=== PATIENT | female | born 1930 | race Caucasian/White ===

== ENCOUNTER 2017-02-06 17:36 | Inpatient (IN) | payer OTHER, MEDICAID ==
--- NOTE | 2017-02-06 18:36 | EDPHY ---
H & P Stated Complaint: not eating/drinking/weak and sleepy/hx of low sodium and potassium Time Seen by Provider: 02/06/17 18:40 HPI/ROS: CHIEF COMPLAINT: Appetite loss HISTORY OF PRESENT ILLNESS: This patient is an 86 year old female with history of Parkinson's disease and dementia who presents to the Emergency Department with son who reports that she has been refusing to eat or drink over the past 24 hours. She has refused her medications during this time. Per son, she has not had a fever, chills, cough, or apparent pain. She does speak with her son; when he has asked, she has denied abdominal pain, nausea, or additional complaints. She has a history of intermittent urinary incontinence with most recent exacerbation three days prior to arrival, but she did urinate today. Medical history also includes hypotension, thyroid dysfunction, and recurrent UTIs. History obtained via son with the help of a Lao russian language instructor. REVIEW OF SYSTEMS: ROS is limited secondary to the patient's history of dementia and Parkinson's disease. Per son, she has denied any additional complaints. Source: Family, Street Openings Inspector Exam Limitations: Language barrier - Personal History Current Tetanus/Diphtheria Vaccine: Yes Tetanus Vaccine Date: 2008 - Medical/Surgical History PMH: 1. Parkinson's disease 2. Dementia 3. Recurrent UTIs 4. Hypotension 5. Thyroid dysfunction, unspecified Hx Asthma: No Hx Chronic Respiratory Disease: No Hx Diabetes: No Hx Cardiac Disease: Yes Hx Renal Disease: No Hx Cirrhosis: No Hx Alcoholism: No Hx HIV/AIDS: No Hx Splenectomy or Spleen Trauma: No Other PMH: htn,dementia, hypotension parkinsons - Social History Smoking Status: Never smoked Additional Social History: Son at bedside. She is originally from [place]. She lives with family. - Physical Exam Exam: General Appearance: Drowsy. Vital signs reviewed. Hypotensive at 84/58. Cachectic. Eyes: Pupils equal and round, no conjunctival injection, no discharge. Anicteric. ENT, Mouth: Mucous membranes are dry, no oropharyngeal erythema or edema. Neck: No lymphadenopathy, supple. Respiratory: Lungs are clear to auscultation; no wheezes, rales, or rhonchi. Cardiovascular: Regular rate and rhythm; no murmur, rub, or gallop. Gastrointestinal: Abdomen is thin, soft and nontender, no masses or organomegaly, bowel sounds normal. Skin: Warm and dry, no rashes on exposed skin, normal color. Back: Nontender to palpation over the thoracolumbar spine. No CVAT. Extremities: No lower extremity edema, no calf tenderness or swelling. Neurological: Somnolent. Intermittently responsive to commands. No verbalization. Limbs are stiff. Psychiatric: Normal affect. Constitutional: Initial Vital Signs Temperature (C) 36.9 C 02/06/17 17:50 Heart Rate 74 02/06/17 17:50 Respiratory Rate 18 02/06/17 17:50 Blood Pressure 84/58 L 02/06/17 17:50 O2 Sat (%) 96 02/06/17 17:50 O2 Delivery Mode Room Air Allergies/Adverse Reactions: No Known Allergies Allergy (Verified 02/06/17 17:46) Home Medications: Medication Instructions Recorded Levothyroxine Sodium [Levothroid] 50 mcg PO DAILY 06/11/11 Lisinopril [PRINIVIL] 20 mg PO DAILY 10/24/11 Scopolamine Hydrobromide 1.5 mg TD Q72H 10/24/11 [Transderm-Scop] Bisacodyl [Bisacodyl (*)] 5 mg PO PRN PRN 02/06/17 Carbidopa/Levodopa/Entacapone 1 each PO TID 02/06/17 [Stalevo 150 Tablet] Memantine HCl [Namenda Xr] 14 mg PO DAILY 02/06/17 Pramipexole Di-HCl [Mirapex ER] 0.75 mg PO DAILY 02/06/17 Travoprost [Travatan Z] 1 drop EACHEYE DAILY 02/06/17 Cephalexin [Keflex (*)] 500 mg PO Q6H #28 cap 02/09/17 Medical Decision Making ED Course/Re-evaluation: 86-year-old female with Parkinson's disease and dementia arrives with her son who reports that she has been refusing food and water for the last 24 hours. She has a history of recurrent UTIs. Son also reports that she has a history of hypokalemia and hyponatremia previously causing her to be less interactive than normal. On exam, she is somnolent, has some drooling, but intermittently responsive to commands. Son states that this is at baseline, though she does occasionally speak with him. Will proceed with labs and UA. The patient was seen by [facility] last week where she is closely followed ; they did not draw labs at that time. UA obtained and is positive for UTI. 1gm IV Ceftriaxone administered. Labs obtained. The patient is hyponatremic at 129. She has baseline anemia. 1954: I discussed lab and UA results with the patient's son as well as my recommendation for admission for further treatment of UTI and hyponatremia. He expresses agreement to this. It is my impression that she is likely dehydrated and malnourished. She will need gentle IV hydration. I am not sure what the and goal is, this will need to be sorted out. 2044: Consultation with Dr. Flakita Otoole, hospitalist, who accepts admission. Differential Diagnosis: Altered mental status including but not limited to hypoglycemia, infectious process, electrolyte abnormality, head injury and intoxicants. - Data Points Laboratory Results: Laboratory Results 02/06/17 19:15 02/06/17 19:15 Medications Given: Discontinued Medications Enoxaparin Sodium (Lovenox) 30 mg SC DAILY [facility] Stop: 08/06/17 08:59 Last Admin: 02/09/17 09:52 Dose: 30 mg Ceftriaxone Sodium/Dextrose (Rocephin 1 Gm (Premix)) 50 mls @ 100 mls/hr IV EDNOW ONE PRN Reason: Protocol Stop: 02/06/17 20:23 Last Admin: 02/06/17 20:31 Dose: 50 mls Sodium Chloride (Ns) 1,000 mls @ 75 mls/hr IV CONT [facility] Stop: 08/05/17 21:59 Last Admin: 02/08/17 18:00 Dose: 1,000 mls Ceftriaxone Sodium/Dextrose (Rocephin 1 Gm (Premix)) 50 mls @ 100 mls/hr IV DAILY [facility]AVAN PRN Reason: Protocol Stop: 03/09/17 08:59 Last Admin: 02/09/17 09:51 Dose: 50 mls Miscellaneous Medication (Memantine Hcl [Namenda Xr]) 0 mg PO DAILY [facility] Stop: 08/06/17 08:59 Last Admin: 02/09/17 09:56 Dose: 7 mg Miscellaneous Medication (Pramipexole Di-Hcl [Mirapex Er]) 0 mg PO DAILY [facility] Stop: 08/06/17 08:59 Last Admin: 02/09/17 09:57 Dose: 0.75 mg Miscellaneous Medication (Carbidopa/Levodopa/Entacapone [Stalevo 150 Tablet]) 0 each PO TID [facility] Stop: 08/05/17 21:59 Last Admin: 02/09/17 09:55 Dose: 150 mg Travoprost (Travatan Z 0.004%) 1 drops EACHEYE DAILY [facility] Stop: 08/06/17 08:59 Last Admin: 02/09/17 09:55 Dose: 1 drop Departure - Departure Disposition: [facility] Inpatient Acute Clinical Impression: Hyponatremia, Failure to thrive in adult UTI (urinary tract infection) Qualifiers: Urinary tract infection type: acute cystitis Hematuria presence: without hematuria Qualified Code(s): N30.00 - Acute cystitis without hematuria Condition: Fair Report Scribed by: Arely James Physician Review and Approval Statement: 02/06/17 18:36 Portions of this note were transcribed by the medical office clerk. I, Dr. Shilpa Lamar, personally performed the history, physical exam, and medical decision- making; and confirmed the accuracy of the information in the transcribed note.
[2017-02-06 19:30] LABS: % IMMATURE GRANULYOCYTES 0.5 % (0.0-1.1); ABSOLUTE IMMATURE GRANULOCYTES 0.02 10^3/uL (0.00-0.10); ADD DIFF? NO; ADD MORPH? NO; ADD SCAN? NO; ATYPICAL LYMPHOCYTE FLAG 0 (0-99); FRAGMENT RBC FLAG 20 (0-99); HEMATOCRIT 27.2 % (38.0-47.0); LEFT SHIFT FLG 0 (0-99); LIPEMIA HEMOLYSIS FLAG 80 (0-99); MEAN CELL HEMOGLOBIN 27.1 pg (27.9-34.1); MEAN CELL HEMOGLOBIN CONCENTR. 33.1 g/dL (32.4-36.7); MEAN CELL VOLUME 81.9 fL (81.5-99.8); MEAN PLATELET VOLUME 10.4 fL (8.7-11.7); PLATELET CLUMPS FLAG 0 (0-99); PLATELET COUNT 224 10^3/uL (150-400); RED BLOOD CELL COUNT 3.32 10^6/uL (4.18-5.33); RED CELL DISTRIBUTION WIDTH 17.5 % (11.5-15.2)
[2017-02-06 19:39] LABS: ANION GAP 7 mEq/L (8-16); CALCIUM 10.6 mg/dL (8.5-10.4); CARBON DIOXIDE 22 mEq/l (22-31); CHLORIDE 100 mEq/L (97-110); CREATININE 0.9 mg/dL (0.6-1.0); GLOMERULAR FILTRATION RATE 60; GLUCOSE 82 mg/dL (70-100); POTASSIUM 4.8 mEq/L (3.5-5.2); SODIUM 129 mEq/L (134-144)
[2017-02-06 19:40] LABS: COLOR AMBER; LEUKOCYTE ESTERASE,URINE TRACE (NEGATIVE); NITRITE,URINE POSITIVE (NEGATIVE)
[2017-02-06 19:45] LABS: BACTERIA 4+ /hpf (NONE SEEN)
[2017-02-06] MEDS ORDERED: ONDANSETRON 4 MG/2 ML VIAL IVP PRN (21:49)
[2017-02-06] MEDS ORDERED: ACETAMINOPHEN 325 MG TAB PO PRN (21:49)
[2017-02-06] MEDS ORDERED: ONDANSETRON DISINTEGRATING 4 MG TAB PO PRN (21:49)
[2017-02-06] MEDS ORDERED: BISACODYL 5 MG EC TAB PO PRN (21:50)
[2017-02-06] MEDS ORDERED: LEVODOPA PO SCH (22:00)
[2017-02-06] MEDS ORDERED: ENTACAPONE PO SCH (22:00)
[2017-02-06] MEDS ORDERED: CARBIDOPA PO SCH (22:00)
[2017-02-06] MEDS: NS 1,000 ML IV SCH (22:20)
--- NOTE | 2017-02-06 22:41 | GHP ---
[f rep st] HISTORY AND PHYSICAL DATE OF ADMISSION: 02/06/2017 CHIEF COMPLAINT: Weakness, decreased p.o. intake. HISTORY OF PRESENT ILLNESS: An 86-year-old female, with a history of fairly advanced Parkinson's di sease and dementia, who has been refusing to eat for the last 24 hours. She is also not taking her medication. She has had previous urinary tract infections, which present like this. There are no f shirin or chills. No abdominal pain. No diarrhea. REVIEW OF SYSTEMS: A 10-point review of systems obtained, and other than stated, is negative. PAST MEDICAL HISTORY: 1. Advanced Parkinson's. 2. Dementia. 3. Previous urinary tract infections. 4. Hypertension. 5. Hypothyroidism. 6. Hyperlipidemia. SOCIAL HISTORY: Lives with her family. No smoking. FAMILY HISTORY: Both parents are . PHYSICAL EXAM: VITAL SIGNS: She is afebrile. Blood pressure is 165/75, heart rate 66, oxygen satu ration 98% on room air. GENERAL: The patient is frail, elderly, very thin woman in no apparent dis tress. HEENT: Nonicteric sclerae. Dry mucous membranes. NECK: Supple. No thyromegaly. LUNGS: Good effort. There is significant barrel chesting, in that the chest actually protrudes quite dram atically. CARDIOVASCULAR: Regular rate and rhythm. No murmurs, gallops. ABDOMEN: Positive bowel sounds. Soft, nontender, nondistended. No hepatosplenomegaly. EXTREMITIES: No clubbing, cyanosi s, or edema. SKIN: Without rash. Warm, intact. NEUROLOGIC: Seems quite stiff, but somnolent. LABS: White count is 3, hemoglobin 9, platelets are 224, sodium 129. BUN is 34, creatinine 0.9, ca lcium 10.6. UA 4+ bacteria, positive nitrites, trace leukocyte esterase. ASSESSMENT: This is an 86-year-old female with advanced Parkinson's presenting with decreased oral intake and failure to thrive. PLAN: 1. Urinary tract infection. We will treat with IV ceftriaxone. 2. Hyponatremia, probably secondary to decreased p.o. intake. We will gently give IV fluids. 3. Parkinson's. We will continue her medications. 4. Hypertension. Continue medications. 5. The patient is a DNR. 6. Social: Could consider Palliative Care consultation. /[id number]/MODL
[2017-02-06] MEDS: CARBIDOPA PO SCH (23:02)
[2017-02-06] MEDS: ENTACAPONE PO SCH (23:02)
[2017-02-06] MEDS: LEVODOPA PO SCH (23:02)
[2017-02-07 05:11] LABS: % IMMATURE GRANULYOCYTES 0.3 % (0.0-1.1); ABSOLUTE IMMATURE GRANULOCYTES 0.01 10^3/uL (0.00-0.10); ADD DIFF? NO; ADD MORPH? NO; ADD SCAN? NO; ATYPICAL LYMPHOCYTE FLAG 20 (0-99); FRAGMENT RBC FLAG 20 (0-99); HEMATOCRIT 22.8 % (38.0-47.0); HEMOGLOBIN 7.5 g/dL (12.6-16.3); LEFT SHIFT FLG 0 (0-99); LIPEMIA HEMOLYSIS FLAG 80 (0-99); MEAN CELL HEMOGLOBIN 26.9 pg (27.9-34.1); MEAN CELL HEMOGLOBIN CONCENTR. 32.9 g/dL (32.4-36.7); MEAN CELL VOLUME 81.7 fL (81.5-99.8); MEAN PLATELET VOLUME 10.5 fL (8.7-11.7); PLATELET CLUMPS FLAG 0 (0-99); PLATELET COUNT 186 10^3/uL (150-400); RED BLOOD CELL COUNT 2.79 10^6/uL (4.18-5.33); RED CELL DISTRIBUTION WIDTH 17.5 % (11.5-15.2)
[2017-02-07 05:19] LABS: ANION GAP 4 mEq/L (8-16); CALCIUM 9.8 mg/dL (8.5-10.4); CARBON DIOXIDE 21 mEq/l (22-31); CHLORIDE 107 mEq/L (97-110); CREATININE 0.8 mg/dL (0.6-1.0); GLOMERULAR FILTRATION RATE > 60; GLUCOSE 60 mg/dL (70-100); POTASSIUM 4.4 mEq/L (3.5-5.2); SODIUM 132 mEq/L (134-144)
--- NOTE | 2017-02-07 08:49 | WOCRNPDOC ---
JACIEL Advanced Assessment Note - Skin Integrity Problem, Advanced Assess Sacrum Pressure Injury Dressing Type: Allevyn Life Dressing Description: Clean/Dry, Intact Exudate Amount: None Integumentary Issue Intervention: Dressing Removed Una Wound Tissue: Blanching, Erythema, Scarred Wound Bed Color: Ages, Red Wound Bed Constitution: Granulation Tissue (60%), Smooth Tissue (40%) Wound Edges: Epithelizing, Attached Site Measurement - Head-to-Toe Length X Width X Depth (cm): 3.3x5.7x0.2 Pressure Injury Stage: Stage 3 Pressure Injury Present on Admit: Yes Skin Integrity Problem Comment: In room with cad design engineer during entire assessment. Patient cachectic with very little tissue over sacrum. Wound currently presents as a shallow healing Stage 3 but may have been a stage 4 at some point. The wound is several months old. Due to constant fecal and urinary incontinence a dressing will not be placed at this time. A clear zinc barrier cream will be provided. This wound will be reassessed Thursday 02/08. Discussed findings and plan with patient's daughter. All questions answered. Left Posterior Elbow Pressure Injury Dressing Type: Open to Air Site Measurement - Head-to-Toe Length X Width X Depth (cm): 4.5x2x0 Pressure Injury Stage: Stage 1 Pressure Injury Present on Admit: Yes Right Greater Trochanter Pressure Injury Dressing Type: Open to Air Site Measurement - Head-to-Toe Length X Width X Depth (cm): 4.3x4.8x0 Pressure Injury Stage: Stage 1 Pressure Injury Present on Admit: Yes Skin Integrity Problem Comment: Covered with Allevyn life for padding. Right Lateral Ankle Pressure Injury Dressing Type: Open to Air Site Measurement - Head-to-Toe Length X Width X Depth (cm): 1.5x1.5x0 Pressure Injury Stage: Stage 1 Pressure Injury Present on Admit: Yes Right Achilles Pressure Injury Dressing Type: Open to Air Site Measurement - Head-to-Toe Length X Width X Depth (cm): 2.8x0.5xscab Pressure Injury Stage: Stage 2 Pressure Injury Present on Admit: Yes Skin Integrity Problem Comment: Ischemic injury likely related from positioning in recliner at home. Right Heel Dressing Type: Open to Air Una Wound Tissue: Blanching, Erythema Left Heel Pressure Injury Dressing Type: Open to Air Site Measurement - Head-to-Toe Length X Width X Depth (cm): 3x3x0 Pressure Injury Stage: Stage 1 Pressure Injury Present on Admit: Yes Skin Integrity Problem Comment: Bilateral offloading boots to be placed on patient at all times.
[2017-02-07] MEDS: LEVODOPA PO SCH ×3 (09:13→22:04)
[2017-02-07] MEDS: ENTACAPONE PO SCH ×3 (09:13→22:04)
[2017-02-07] MEDS: CARBIDOPA PO SCH ×3 (09:13→22:04)
[2017-02-07] MEDS: PRAMIPEXOLE DI HCL 0.75 MG PO SCH (09:15)
[2017-02-07] MEDS: MEMANTINE HCL 7 MG PO SCH (09:17)
[2017-02-07] MEDS: ENOXAPARIN 30 MG/0.3 ML SYR SC SCH (09:44)
--- NOTE | 2017-02-07 12:41 | HOSPPROG ---
Hospitalist Progress Note Assessment/Plan: DIAGNOSES: -ACUTE ENCEPHALOPATHY, ACUTE ONSET GENERALIZED WEAKNESS -HYPONATREMIA LIKELY PRIMARILY DUE TO POOR INTAKE -DEHYDRATION DUE TO POOR INTAKE -SEVERE DECONDITIONING -SEVERE CACHEXIA AND PROTEIN CALORIE MALNUTRITION -AT THIS TIME I DO NOT BELIEVE SHE HAS A UTI BUT WILL FOLLOW CULTURES WHICH ARE PENDING; THERE IS NO FEVER, HIGH WHITE BLOOD CELL COUNT, OR PYURIA -ADVANCED PARKINSON'S DISEASE PLANS: - continue IV hydration and electrolyte replacement -Encourage intake of nutrition as able -Vitamin replacement -Insure -Physical and occupational therapy -DVT prophylaxis -Follow sodium closely -Follow cultures I have reviewed the patient's home status and her current medical status and functional status and diagnoses here at the bedside with the daughter. We had extensive discussion about her condition and the plans of treatment and the daughter is in agreement with all of this. SUBJECTIVE: The patient is unable to have conversation or interact in a way I can assess her symptoms The patient's daughter says that the patient is definitely more interactive today, and is now swelling liquids much better than he was at home. The daughter and nurses have not noted any signs of aspiration so far today with swallowing OBJECTIVE Vitals reviewed: stable without fever Insole And Outsole Preparer, my review: sinus Exam: awake, and makes very weak efforts to interact but unable to speak and not really able to move much at all; there is no asymmetric weakness; pupils are normal; facial expression very blank She is extremely cachectic skin warm dry color ok, no ulcers or other concerning lesions are noted resps not labored lungs clear BSs heart regular abd soft nondistended nontender, bowel sounds present good capillary refill in digits iv site ok Laboratory data: sodium somewhat improved today so far Microbiology: No growth on any cultures so far Objective: Vital Signs Temp Pulse Resp BP Pulse Ox 35.6 C L 70 20 141/58 H 94 02/07/17 07:22 02/07/17 07:22 02/07/17 07:22 02/07/17 07:22 02/07/17 07:22 Laboratory Results 02/07/17 03:32 02/07/17 03:32 02/06/17 02/07/17 02/08/17 06:59 06:59 06:59 Intake Total 100 Balance 100 - Time Spent With Patient Time Spent with Patient: greater than 35 minutes Time Spent with Patient: Greater than 35 minutes spent on this patients care, greater than 50% of time spent counseling, educating, and coordinating care regarding the above mentioned plan. ICD10 Worksheet Patient Problems: Problems Problem Status Onset Hyponatremia Acute UTI (urinary tract infection) Acute Anemia due to blood loss Active Clostridium difficile colitis Active Colitis Active Dysphagia Active Fever Active Hypoalbuminemia Active Parkinson's disease Active
[2017-02-07] MEDS: NS 1,000 ML IV SCH (12:50)
[2017-02-07] MEDS: TRAVOPROST Z 0.004% 2.5 ML OPHT.BTL EACHEYE SCH (16:35)
[2017-02-07 16:38] LABS: HEMATOCRIT 24.3 % (38.0-47.0); HEMOGLOBIN 7.9 g/dL (12.6-16.3)
--- NOTE | 2017-02-08 08:58 | WOCRNPDOC ---
WOCRN Advanced Assessment Note - Skin Integrity Problem, Advanced Assess Sacrum Pressure Injury Dressing Type: Open to Air (shiny from Clear Zinc cream) Exudate Amount: Scant Exudate Color: Reddish/Yellow Exudate Characteristic(s): Serosanguinous Integumentary Issue Intervention: Barrier Cream Applied (Clear Zinc) Una Wound Tissue: Raw, Denuded, Scarred Una Wound Swelling: Mild Wound Bed Color: Red Wound Bed Constitution: Granulation Tissue, Smooth Tissue Site Odor: None Pressure Injury Stage: Stage 3 Pressure Injury Present on Admit: Yes (Documented) Skin Integrity Problem Comment: Follow-up assessment to determine if dressing could be applied to stage 3 sacral wound. Previously, patient was having frequent stools, making placement of a dressing difficult. Clear Zinc barrier cream was ordered by LIZETH Phillips yesterday. Upon assessment today, patient continues to have stool on her una-anal skin, and in her brief. According to dinking machine operator [place], frequency of stool has not decreased since admission. No dressing advised at this time, as it would only necessitate frequent dressing changes and could potentially trap stool against both the wound and skin. Wound RN will reevaluate wound on Saturday 02/10 for potential dressing placement.
[2017-02-08] MEDS: CARBIDOPA PO SCH ×3 (09:59→21:51)
[2017-02-08] MEDS: ENOXAPARIN 30 MG/0.3 ML SYR SC SCH (09:59)
[2017-02-08] MEDS: LEVODOPA PO SCH ×3 (09:59→21:51)
[2017-02-08] MEDS: ENTACAPONE PO SCH ×3 (09:59→21:51)
[2017-02-08] MEDS: MEMANTINE HCL 7 MG PO SCH (10:00)
[2017-02-08] MEDS: PRAMIPEXOLE DI HCL 0.75 MG PO SCH (10:01)
[2017-02-08] MEDS: TRAVOPROST Z 0.004% 2.5 ML OPHT.BTL EACHEYE SCH (10:06)
--- NOTE | 2017-02-08 10:06 | HOSPPROG ---
Hospitalist Progress Note Assessment/Plan: Patient seen together today with supervisor fertilizer processing and the presence of family at the bedside as well. DIAGNOSES: -ACUTE ENCEPHALOPATHY, ACUTE ONSET GENERALIZED WEAKNESS -HYPONATREMIA LIKELY PRIMARILY DUE TO POOR INTAKE -DEHYDRATION DUE TO POOR INTAKE -SEVERE DECONDITIONING -?? Gram neg joann UTI WITH NO PYURIA -SEVERE CACHEXIA AND PROTEIN CALORIE MALNUTRITION -ADVANCED PARKINSON'S DISEASE Overall is making some progress with good improvement in her encephalopathy and getting close to baseline with that. Here in cultures now growing greater than 100,000 gram-negative rods and I am not certain yet of the significance of this with no pyuria, but will continue to treat with antibiotic while we wait for the final culture result PLANS: -continue IV hydration and electrolyte replacement -Encourage intake of nutrition as able -continue empiric antibiotics at this point and Follow cultures -Vitamin replacement -Ensure -Physical and occupational therapy -DVT prophylaxis -Follow sodium closely I have reviewed the patient's home status and her current medical status and functional status and diagnoses here at the bedside with the daughter. We had extensive discussion about her condition and the plans of treatment and the daughter is in agreement with all of this. SUBJECTIVE: The patient is unable to have conversation or interact in a way I can assess her symptoms The patient's daughter says that the patient is definitely more interactive today, and is now swelling liquids much better than he was at home. 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 Repairer, my review: sinus Exam: Now much more alert and interactive, fairly conversant through the medical reimbursement manager She is extremely cachectic skin warm dry color ok, no ulcers or other concerning lesions are noted resps not labored lungs clear BSs heart regular abd soft nondistended nontender, bowel sounds present good capillary refill in digits iv site ok Microbiology: now with >100,000 grm neg rods Objective: Vital Signs Temp Pulse Resp BP Pulse Ox 36.7 C 58 L 16 126/53 H 96 02/08/17 08:00 02/08/17 08:00 02/08/17 08:00 02/08/17 08:00 02/08/17 08:00 Laboratory Results 02/07/17 16:13 02/07/17 03:32 02/07/17 02/08/17 02/09/17 06:59 06:59 06:59 Intake Total 100 1762 Balance 100 1762 ICD10 Worksheet Patient Problems: Problems Problem Status Onset Hyponatremia Acute UTI (urinary tract infection) Acute Anemia due to blood loss Active Clostridium difficile colitis Active Colitis Active Dysphagia Active Fever Active Hypoalbuminemia Active Parkinson's disease Active
[2017-02-08] MEDS: NS 1,000 ML IV SCH (18:00)
[2017-02-09 07:22] VITALS: BP 166/79; PULSE 67; RESP 16; TEMP 98; O2SAT 97
[2017-02-09] MEDS: ENOXAPARIN 30 MG/0.3 ML SYR SC SCH (09:52)
[2017-02-09] MEDS: TRAVOPROST Z 0.004% 2.5 ML OPHT.BTL EACHEYE SCH (09:55)
[2017-02-09] MEDS: ENTACAPONE PO SCH (09:55)
[2017-02-09] MEDS: LEVODOPA PO SCH (09:55)
[2017-02-09] MEDS: CARBIDOPA PO SCH (09:55)
[2017-02-09] MEDS: MEMANTINE HCL 7 MG PO SCH (09:56)
[2017-02-09] MEDS: PRAMIPEXOLE DI HCL 0.75 MG PO SCH (09:57)
--- NOTE | 2017-02-09 13:07 | PDDCSUM ---
Discharge Summary Discharge Summary: DISCHARGE DIAGNOSES: -ACUTE ENCEPHALOPATHY, ACUTE ONSET GENERALIZED WEAKNESS -HYPONATREMIA LIKELY PRIMARILY DUE TO POOR INTAKE -DEHYDRATION DUE TO POOR INTAKE -SEVERE DECONDITIONING - COMPLICATED URINARY TRACT INFECTION WITH E COLI -SEVERE CACHEXIA AND PROTEIN CALORIE MALNUTRITION -ADVANCED PARKINSON'S DISEASE HOSPITAL COURSE SUMMARY: This woman with advanced Parkinson's disease who is severely disabled and debilitated, comes in with acute encephalopathy due to urinary tract infection and hyponatremia. Cultures grew a sensitive E coli. She was treated with hydration and IV antibiotics. she has recovered very nicely and is back to her usual function from neurologic as well as a mobility standpoint which again is fairly debilitated. She has had no complications here. She is cared for by numerous family members who look after very well enough maintain her health good range over time. She will be going back home with home care from her family. They live with her. PENDING TEST RESULTS: None MEDICATION CHANGES: Keflex 500 mg four times daily for 1 week FOLLOW-UP PLAN: With her primary care physician as needed Greater than 35 minutes bedside and care coordination time today
== END 2017-02-09 13:24 | disposition home or self-care (01) | DRG 689 ==
LOC: F2W 21:57
PROVIDERS: ADMIT Internal Medicine; ATTEND Internal Medicine
DX: N39.0 Urinary tract infection, site not specified (principal); B96.20 Unspecified Escherichia coli [E. coli] as the cause of diseases classified elsewhere; G93.40 Encephalopathy, unspecified; E87.1 Hypo-osmolality and hyponatremia; E86.0 Dehydration; E46 Unspecified protein-calorie malnutrition; G31.83 Neurocognitive disorder with Lewy bodies; F02.80 Dementia in other diseases classified elsewhere, unspecified severity, without behavioral disturbance, psychotic disturbance, mood disturbance, and anxiety; L89.153 Pressure ulcer of sacral region, stage 3; L89.612 Pressure ulcer of right heel, stage 2; L89.021 Pressure ulcer of left elbow, stage 1; L89.511 Pressure ulcer of right ankle, stage 1; L89.621 Pressure ulcer of left heel, stage 1; L89.211 Pressure ulcer of right hip, stage 1; E03.9 Hypothyroidism, unspecified
CPT/HCPCS: 92610-GN; G8996-GN-CJ; G8997-GN-CJ; J0696; J1650

== ENCOUNTER 2017-08-12 13:22 | Inpatient (IN) | payer MEDICAID, OTHER ==
--- NOTE | 2017-08-12 13:48 | CPEKG ---
Heart Rate: 42 RR Interval: 1429 P-R Interval: 159 QRSD Interval: 102 QT Interval: 472 QTC Interval: 395 P [place]: 0 QRS [place]: 33 T Wave [place]: 74 EKG Severity - ABNORMAL ECG - EKG Impression: SINUS BRADYCARDIA EKG Impression: LOW VOLTAGE IN FRONTAL LEADS EKG Impression: NONSPECIFIC T ABNORMALITIES, LATERAL LEADS Electronically Signed By: Chris Avilez 12-Aug-2017 14:37:41
--- NOTE | 2017-08-12 14:08 | EDPHY ---
H & P Time Seen by Provider: 08/12/17 13:45 HPI/ROS: CHIEF COMPLAINT: Will not open her eyes HISTORY OF PRESENT ILLNESS: History from the son and with the assistance of historical interpreter at bedside. Patient is a history of hypertension but has been bed-bound for the last 3 years. Visit [facility] past week for a regular office visit. The past 24 hours she has become less responsive and unable to open her eyes. According to her son and no diarrhea p but does constipation. No vomiting or trouble breathing. Further history and review of systems unobtainable because the patient is nonverbal. PAST MEDICAL HISTORY: Hypertension, dementia, Parkinson's Social history: Here with son who is Hungarian-speaking, gis professor present in person. General Appearance: Patient is obtunded will not open eyes to painful stimuli or spontaneously Eyes: Pupils reactive 3 mm bilaterally ENT, Mouth: dry mucous membranes. Respiratory: Normal respiratory effort, breath sounds equal, lungs are clear to auscultation. Cardiovascular: Regular rate and rhythm. Gastrointestinal: Abdomen is soft and non tender. Neurological: Patient is obtunded Skin: Sacral decubitus, but no evidence of cellulitis. Musculoskeletal: Flexion contractures in all 4 extremities. Psychiatric: Unable, nonverbal. Emergency Department course/MDM: VS 78/39, hr 49, rr 9, 98% RA, T 33.9 Initial temperature 33 degrees. Initial EKG shows sinus bradycardia at rate of 42. 1430: Glucose 41, given intravenous glucose. Beau Hugger applied. 1501: Negative head CT per Dr. Lezama. Myxedema coma considered, will wait for TSH prior to instituting therapy, discussed with admitting hospitalist Dr. Crockett. Blood pressure was 60 systolic, given 100 mg IV hydrocortisone and fluid bolus, systolic blood pressure up to 120. Smoking Status: Never smoked Constitutional: Initial Vital Signs Blood Pressure 80/42 L 08/12/17 13:28 O2 Delivery Mode Room Air Allergies/Adverse Reactions: No Known Allergies Allergy (Verified 02/06/17 17:46) Home Medications: Medication Instructions Recorded Lisinopril [PRINIVIL] 20 mg PO DAILY 10/24/11 Scopolamine Hydrobromide 1.5 mg TD Q72H 10/24/11 [Transderm-Scop] Memantine HCl [Namenda Xr] 14 mg PO DAILY 02/06/17 Pramipexole Di-HCl [Mirapex ER] 0.75 mg PO DAILY 02/06/17 Travoprost [Travatan Z] 1 drop EACHEYE DAILY 02/06/17 Carbidopa/Levodopa/Entacapone 1 each PO TID 08/12/17 [Noxkvubpf-Vctcfuaj-Zruq 200 mg] Ferrous Sulfate 4 ml PO BIDMEAL 08/12/17 Hydrocodone/APAP 5/325 [[place] 0.5 - 1 tab PO Q6H PRN 08/12/17 5/325 (*)] Levothyroxine Sodium 75 mcg PO DAILY06 08/12/17 Polyethylene Glycol 3350 [Miralax 17 gm PO DAILY PRN 08/12/17 17 gm (*)] Medical Decision Making - Diagnostics EKG Interpretation: 12-lead EKG interpreted by me; official reading is in trace master. My interpretation is sinus rhythm bradycardic at rate of 42 with nonspecific lateral T-wave abnormalities. Imaging Results: Imaging Impressions Head CT 08/12/17 14:07 Impression: No evidence for acute intracranial abnormality. Mild periventricular and deep hemispheric white matter change that can be seen with small vessel ischemic disease. Results called and discussed with Dr. Chris Avilez on 08/12/2017, 15:07. Chest X-Ray 08/12/17 14:20 Impression: 1. Severely limited chest with no acute findings. If symptoms persist and clinical suspicion warrants, consider departmental PA and lateral chest. 2. Additional findings as above. Consult/Admit Bed Type: [place] [address] Critical Care Time: Critical care time spent by me, Dr. Avilez, exclusively with the care of this patient was 45 minutes, exclusive of PA or CLIENT LIAISON time and exclusive of separate procedures. The organ system at risk was multiple including metabolic and I ordered IV normal saline bolus, IV hydrocortisone, IV glucose, history from family and discussion with job service consultant; to stabilize the patient and prevent worsening of the patient's condition. - Data Points Laboratory Results: Laboratory Results 08/12/17 13:50 08/12/17 13:50 08/12/17 08/12/17 08/12/17 14:12 13:50 13:50 WBC RBC Hgb POC Hgb 11.9 gm/dL L gm/dL (12.6-16.3) Hct POC Hct 35 % L % (38-47) MCV MCH MCHC RDW Plt Count MPV Neut % (Auto) Lymph % (Auto) [place] % (Auto) Eos % (Auto) Baso % (Auto) Nucleat RBC Rel Count Absolute Neuts (auto) Absolute Lymphs (auto) Absolute Monos (auto) Absolute Eos (auto) Absolute Basos (auto) Absolute Nucleated RBC Immature Gran % Immature Gran # Platelet Estimate Microcytic Cells Oval Macrocytes Elliptocytes PT INR APTT VBG Lactic Acid POC Sodium 136 mEq/L mEq/L (134-144) Sodium POC Potassium 4.3 mEq/L mEq/L (3.3-5.0) Potassium POC Chloride 106 mEq/L mEq/L (97-110) Chloride Carbon Dioxide Anion Gap POC BUN 39 mg/dL H mg/dL (7-23) BUN Creatinine POC Creatinine 1.0 mg/dL mg/dL (0.6-1.0) Estimated GFR Glucose POC Glucose 41 mg/dL L mg/dL (70-100) Calcium Phosphorus Total Bilirubin TSH 1.830 uIU/mL uIU/mL (0.465-4.680) Urine Color BENNY Urine Appearance CLEAR Urine pH 5.0 (5.0-7.5) Ur Specific [place] 1.015 (1.002-1.030) Urine Protein NEGATIVE (NEGATIVE) Urine Ketones TRACE H (NEGATIVE) Urine Blood NEGATIVE (NEGATIVE) Urine Nitrate NEGATIVE (NEGATIVE) Urine Bilirubin NEGATIVE (NEGATIVE) Urine Urobilinogen NEGATIVE EU EU (0.2-1.0) Ur Leukocyte Esterase NEGATIVE (NEGATIVE) Urine Glucose NEGATIVE (NEGATIVE) 08/12/17 08/12/17 08/12/17 13:50 13:50 13:50 WBC 4.87 10^3/uL 10^3/uL (3.80-9.50) RBC 3.66 10^6/uL L 10^6/uL (4.18-5.33) Hgb 10.9 g/dL L g/dL (12.6-16.3) POC Hgb Hct 31.9 % L % (38.0-47.0) POC Hct MCV 87.2 fL fL (81.5-99.8) MCH 29.8 pg pg (27.9-34.1) MCHC 34.2 g/dL g/dL (32.4-36.7) RDW 21.1 % H % (11.5-15.2) Plt Count 96 10^3/uL L 10^3/uL (150-400) MPV 11.3 fL fL (8.7-11.7) Neut % (Auto) 85.4 % H % (39.3-74.2) Lymph % (Auto) 11.1 % L % (15.0-45.0) [place] % (Auto) 3.1 % L % (4.5-13.0) Eos % (Auto) 0.0 % L % (0.6-7.6) Baso % (Auto) 0.2 % L % (0.3-1.7) Nucleat RBC Rel Count 0.0 % % (0.0-0.2) Absolute Neuts (auto) 4.16 10^3/uL 10^3/uL (1.70-6.50) Absolute Lymphs (auto) 0.54 10^3/uL L 10^3/uL (1.00-3.00) Absolute Monos (auto) 0.15 10^3/uL L 10^3/uL (0.30-0.80) Absolute Eos (auto) 0.00 10^3/uL L 10^3/uL (0.03-0.40) Absolute Basos (auto) 0.01 10^3/uL L 10^3/uL (0.02-0.10) Absolute Nucleated RBC 0.00 10^3/uL 10^3/uL (0-0.01) Immature Gran % 0.2 % % (0.0-1.1) Immature Gran # 0.01 10^3/uL 10^3/uL (0.00-0.10) Platelet Estimate DECREASED L (ADEQ) Microcytic Cells 1+ H Oval Macrocytes 1+ H Elliptocytes 1+ H PT 13.3 SEC SEC (12.0-15.0) INR 1.02 (0.83-1.16) APTT 39.6 SEC H SEC (23.0-38.0) VBG Lactic Acid POC Sodium Sodium 134 mEq/L mEq/L (134-144) POC Potassium Potassium 4.5 mEq/L mEq/L (3.5-5.2) POC Chloride Chloride 103 mEq/L mEq/L (97-110) Carbon Dioxide 22 mEq/l mEq/l (22-31) Anion Gap 9 mEq/L mEq/L (8-16) POC BUN BUN 40 mg/dL H mg/dL (7-23) Creatinine 1.0 mg/dL mg/dL (0.6-1.0) POC Creatinine Estimated GFR 53 Glucose 35 mg/dL L* mg/dL (70-100) POC Glucose Calcium 10.7 mg/dL H mg/dL (8.5-10.4) Phosphorus 3.7 mg/dL mg/dL (2.5-4.5) Total Bilirubin 0.1 mg/dL mg/dL (0.1-1.4) TSH Urine Color Urine Appearance Urine pH Ur Specific [place] Urine Protein Urine Ketones Urine Blood Urine Nitrate Urine Bilirubin Urine Urobilinogen Ur Leukocyte Esterase Urine Glucose 08/12/17 13:50 WBC RBC Hgb POC Hgb Hct POC Hct MCV MCH MCHC RDW Plt Count MPV Neut % (Auto) Lymph % (Auto) [place] % (Auto) Eos % (Auto) Baso % (Auto) Nucleat RBC Rel Count Absolute Neuts (auto) Absolute Lymphs (auto) Absolute Monos (auto) Absolute Eos (auto) Absolute Basos (auto) Absolute Nucleated RBC Immature Gran % Immature Gran # Platelet Estimate Microcytic Cells Oval Macrocytes Elliptocytes PT INR APTT VBG Lactic Acid 1.3 mmol/L mmol/L (0.7-2.1) POC Sodium Sodium POC Potassium Potassium POC Chloride Chloride Carbon Dioxide Anion Gap POC BUN BUN Creatinine POC Creatinine Estimated GFR Glucose POC Glucose Calcium Phosphorus Total Bilirubin TSH Urine Color Urine Appearance Urine pH Ur Specific [place] Urine Protein Urine Ketones Urine Blood Urine Nitrate Urine Bilirubin Urine Urobilinogen Ur Leukocyte Esterase Urine Glucose Medications Given: Dextrose/Sodium Chloride (D5w Ns) 1,000 mls @ 75 mls/hr IV CONT DONAVAN Stop: 02/08/18 16:29 Last Admin: 08/12/17 18:13 Dose: 1,000 mls Piperacillin/Tazobactam/Dextrose (Zosyn 2.25 Gm (Premix)) 50 mls @ 100 mls/hr IV Q6 DONAVAN Stop: 09/11/17 18:14 Last Admin: 08/12/17 18:29 Dose: 50 mls Discontinued Medications Dextrose (Dextrose 50% Syringe) 25 gm IVP EDNOW ONE Stop: 08/12/17 14:28 Last Admin: 08/12/17 14:30 Dose: Not Given Hydrocortisone (Solucortef) 100 mg IVP EDNOW ONE Stop: 08/12/17 15:39 Last Admin: 08/12/17 15:46 Dose: 100 mg Dextrose (D10w) 250 mls @ 0 mls/hr IV Q24H DONAVAN PRN Reason: Wide Open Stop: 02/08/18 14:29 Last Admin: 08/12/17 14:32 Dose: 250 mls Sodium Chloride (Ns) 1,000 mls @ 0 mls/hr IV ONCE ONE PRN Reason: Wide Open Stop: 08/12/17 15:46 Last Admin: 08/12/17 15:45 Dose: 1,000 mls Sodium Chloride (Ns) 1,000 mls @ 3,000 mls/hr IV ONCE ONE Stop: 08/12/17 17:48 Last Admin: 08/12/17 18:14 Dose: 1,000 mls Point of Care Test Results: 08/12/17 14:12 POC Sodium 136 POC Potassium 4.3 POC Chloride 106 POC BUN 39 H POC Creatinine 1.0 POC Glucose 41 L Departure - Departure Disposition: [facility] Acute Clinical Impression: Hypoglycemia, Bradycardia Hypothermia Qualifiers: Encounter type: initial encounter Qualified Code(s): T68.XXXA - Hypothermia, initial encounter Condition: Critical
[2017-08-12 14:16] LABS: % IMMATURE GRANULYOCYTES 0.2 % (0.0-1.1); ABSOLUTE IMMATURE GRANULOCYTES 0.01 10^3/uL (0.00-0.10); ADD DIFF? NO; ADD MORPH? YES; ADD SCAN? NO; ATYPICAL LYMPHOCYTE FLAG 0 (0-99); FRAGMENT RBC FLAG 20 (0-99); HEMATOCRIT 31.9 % (38.0-47.0); HEMOGLOBIN 10.9 g/dL (12.6-16.3); LEFT SHIFT FLG 10 (0-99); LIPEMIA HEMOLYSIS FLAG 90 (0-99); MEAN CELL HEMOGLOBIN 29.8 pg (27.9-34.1); MEAN CELL HEMOGLOBIN CONCENTR. 34.2 g/dL (32.4-36.7); MEAN CELL VOLUME 87.2 fL (81.5-99.8); MEAN PLATELET VOLUME 11.3 fL (8.7-11.7); PLATELET CLUMPS FLAG 20 (0-99); PLATELET COUNT 96 10^3/uL (150-400); RED BLOOD CELL COUNT 3.66 10^6/uL (4.18-5.33)
[2017-08-12 14:19] LABS: RED CELL DISTRIBUTION WIDTH 21.1 % (11.5-15.2)
[2017-08-12 14:24] LABS: ANION GAP 9 mEq/L (8-16); BILIRUBIN,TOTAL 0.1 mg/dL (0.1-1.4); CALCIUM 10.7 mg/dL (8.5-10.4); CARBON DIOXIDE 22 mEq/l (22-31); CHLORIDE 103 mEq/L (97-110); GLOMERULAR FILTRATION RATE 53; INR 1.02 (0.83-1.16); POTASSIUM 4.5 mEq/L (3.5-5.2); PROTIME(PATIENT) 13.3 SEC (12.0-15.0); SODIUM 134 mEq/L (134-144)
[2017-08-12 14:25] LABS: APTT 39.6 SEC (23.0-38.0)
[2017-08-12] MEDS ORDERED: D50W 25 GM/50 ML SYR IVP ONE (14:27)
[2017-08-12] MEDS ORDERED: D10W 250 ML IV SCH (14:30)
[2017-08-12 14:33] LABS: COLOR AMBER; LEUKOCYTE ESTERASE,URINE NEGATIVE (NEGATIVE); NITRITE,URINE NEGATIVE (NEGATIVE)
[2017-08-12 14:47] LABS: GLUCOSE 35 mg/dL (70-100)
[2017-08-12 14:54] LABS: PLATELET ESTIMATE DECREASED (ADEQ)
[2017-08-12 14:57] LABS: ELLIPTOCYTES 1+; MACROCYTES 1+; MICROCYTES 1+
[2017-08-12 15:29] VITALS: TEMP 92.8
[2017-08-12] MEDS ORDERED: HYDROCORTISONE 100 MG/2 ML VIAL ONE (15:38)
[2017-08-12] MEDS ORDERED: HYDROCORTISONE 100 MG/2 ML VIAL IVP ONE (15:38)
[2017-08-12] MEDS ORDERED: NS 1,000 ML IV ONE ×3 (15:45→18:48)
[2017-08-12] MEDS ORDERED: ONDANSETRON DISINTEGRATING 4 MG TAB PO PRN (16:20)
[2017-08-12] MEDS ORDERED: ACETAMINOPHEN 325 MG TAB PO PRN (16:20)
[2017-08-12] MEDS ORDERED: ONDANSETRON 4 MG/2 ML VIAL IVP PRN (16:20)
[2017-08-12] MEDS ORDERED: D5W NS 1,000 ML IV SCH (16:30)
[2017-08-12] MEDS ORDERED: PIPERACILLIN/TAZO 3.375 GM/DEX 50 ML IV SCH (18:00)
[2017-08-12 18:16] LABS: PROCALCITONIN 0.07 ng/mL (0.02-0.10)
--- NOTE | 2017-08-12 18:16 | GHP ---
[f rep st] HISTORY AND PHYSICAL DATE OF ADMISSION: 08/12/2017 CHIEF COMPLAINT: Will not open her eyes. HISTORY OF PRESENT ILLNESS: This is an 86-year-old female, seen with the assistance of historic interpreter, her son and daughter present, who presents with worsening fatigue/obtundation. She normally has dementia. At her baseline she knows her family, does not always know where she is, needs help eating. She has had more trouble swallowing recently due to her Parkinson disease. She actually had an appointment to see a neurologist tomorrow. Family is unsure if she has been keeping her pills down. She has had more problems keeping food down as well. Over the past 3 days, she has been closing her eyes and seems to have been sleeping more. Family tells me that they oftentimes will see evidence of pills in her teeth after she is supposed to have taken them. PAST MEDICAL/SURGICAL HISTORY: 1. Dementia. 2. Parkinson's. 3. Hypertension. 4. Hypothyroid. MEDICATIONS: Please see medication reconciliation. ALLERGIES: No known drug allergies. FAMILY HISTORY: Reviewed and noncontributory. SOCIAL HISTORY: She lives with her son. REVIEW OF SYSTEMS: A 10-point review of systems is conducted and is negative except per HPI. PHYSICAL EXAMINATION: VITAL SIGNS: Initial blood pressure 79/39, heart rate 50 , respiration rate 8, satting 98% on room air. Temperature is 33.8. GENERAL: The patient is a very obtunded female, nonresponsive, who has upper and lower extremity contractures. HEENT: Shows her pupils to be equal, round, reactive, about 3 mm. CARDIOVASCULAR: Shows her to be bradycardic. There are no murmurs , rubs, or gallops. PULMONARY: Shows her to be clear bilaterally. ABDOMEN: She does not grimace when I press on her abdomen. It is soft. SKIN: Shows multiple areas of ecchymosis as well as skin breakdown. : She has a Castro in place. NEUROLOGIC: Shows her to be completely obtunded. She is not opening her eyes to voice. PSYCHIATRIC: Unobtainable. LABORATORY DATA: White count 4.87, platelets are 96. INR is 1. Lactate 1.3. Initial glucose is 35. Creatinine is 1.0. TSH is 1.8. Free T4 is 2.1. Cortisol 22. Urinalysis shows trace ketones. DATA: 1. I discussed this with Dr. Lopes as well as Dr. Espinoza. We will admit to the ICU. We do not think that this is myxedema coma given her normal thyroid studies. 2. Head CT shows nothing acute. 3. ECG shows sinus mona, nothing acutely ischemic. IMPRESSION AND PLAN: 86-year-old female with multiple issues includin. Obtundation, [id number] encephalopathy: Certainly off her baseline. I believe this is metabolic, though cannot exclude a primary neurologic pathology. She is well out of the window for tPA if this were to be a stroke. We will treat other reversible causes and follow closely. 2. Constellation of hypoglycemia, hypotension, bradycardia, and hypothermia: Initially strongly considered myxedema coma, though TSH and free T4 are normal. Discussed with Dr. Espinoza, who thinks that diagnosis is very unlikely. She has a normal cortisol. Consider sepsis, will empirically treat with broad- spectrum antibiotics, follow blood cultures, check procalcitonin. If her blood pressures do not come up, will place a central line and start pressors. Consider hypovolemia, we will aggressively rehydrate. We will check an echocardiogram to assess for cardiogenic. We will follow closely in the ICU. 3. Parkinson's: Hypovolemia may be related to dysphagia. We will place a nasogastric tube and give her her Sinemet via tube. I discussed this with her son, who agrees with this. 4. Goals of care: Son and daughter agree she would not want to be resuscitated and not want to be intubated. They are okay with placing a central line as well as a nasogastric tube for feeding for now if necessary. I placed a palliative care consult. 5. Hypoglycemia: Continue D5 drip. This may be due to very poor p.o. intake. 6. Hypothermia: She has a rewarming blanket on. 7. Multiple pressure ulcers, present on admission: Wound care consult has been placed. 8. Venous thromboembolism risk: This is high given her current status. We will place her on low-dose Lovenox. 9. I have ordered Neurology consult. 60 minutes of critical care time were spent /[id number]/MODL MTDD
[2017-08-12] MEDS: PIPERACILLIN/TAZO 2.25 GM/DEX 50 ML IV SCH (18:29)
[2017-08-12] MEDS ORDERED: ACETAMINOPHEN 325 MG TAB TUBE PRN (19:00)
[2017-08-12] MEDS ORDERED: VANCOMYCIN 750 MG in D5W 150 ML IV ONE (19:00)
[2017-08-12] MEDS ORDERED: ONDANSETRON DISINTEGRATING 4 MG TAB TUBE PRN (19:00)
[2017-08-12] MEDS ORDERED: LEVODOPA TUBE SCH (22:00)
[2017-08-12] MEDS ORDERED: CARBIDOPA TUBE SCH (22:00)
[2017-08-12] MEDS ORDERED: ENTACAPONE TUBE SCH (22:00)
[2017-08-12] MEDS: ENTACAPONE 200 MG TAB TUBE SCH (22:44)
[2017-08-12] MEDS: CARBIDOPA/LEVODOPA 25 MG/100 MG TAB TUBE SCH (22:44)
[2017-08-12] MEDS: HYDROCORTISONE 100 MG/2 ML VIAL IVP SCH (22:44)
[2017-08-12] MEDS: PRAMIPEXOLE 0.25 MG TAB TUBE SCH (22:44)
[2017-08-13] MEDS: PIPERACILLIN/TAZO 2.25 GM/DEX 50 ML IV SCH ×2 (00:06→05:57)
[2017-08-13] MEDS: LEVOTHYROXINE 75 MCG TAB TUBE SCH (05:57)
[2017-08-13] MEDS: HYDROCORTISONE 100 MG/2 ML VIAL IVP SCH ×3 (05:57→21:38)
[2017-08-13] MEDS ORDERED: LEVOTHYROXINE SODIUM TUBE SCH (06:00)
[2017-08-13 06:14] LABS: % IMMATURE GRANULYOCYTES 0.7 % (0.0-1.1); ABSOLUTE IMMATURE GRANULOCYTES 0.05 10^3/uL (0.00-0.10); ADD DIFF? NO; ADD MORPH? YES; ADD SCAN? NO; ATYPICAL LYMPHOCYTE FLAG 0 (0-99); FRAGMENT RBC FLAG 20 (0-99); HEMATOCRIT 24.7 % (38.0-47.0); HEMOGLOBIN 8.4 g/dL (12.6-16.3); LEFT SHIFT FLG 20 (0-99); LIPEMIA HEMOLYSIS FLAG 90 (0-99); MEAN CELL HEMOGLOBIN 29.6 pg (27.9-34.1); MEAN PLATELET VOLUME 11.5 fL (8.7-11.7); PLATELET CLUMPS FLAG 0 (0-99); PLATELET COUNT 71 10^3/uL (150-400); RED BLOOD CELL COUNT 2.84 10^6/uL (4.18-5.33)
[2017-08-13 06:21] LABS: ALANINE AMINOTRANSFERASE 17 IU/L (9-52); ALBUMIN 2.1 g/dL (3.5-5.0); ALKALINE PHOSPHATASE 64 IU/L (38-126); ANION GAP 8 mEq/L (8-16); ASPARTATE AMINOTRANSFERASE 39 IU/L (14-46); BILIRUBIN,TOTAL 0.1 mg/dL (0.1-1.4); CALCIUM 8.8 mg/dL (8.5-10.4); CARBON DIOXIDE 16 mEq/l (22-31); CHLORIDE 112 mEq/L (97-110); CREATININE 0.9 mg/dL (0.6-1.0); GLOMERULAR FILTRATION RATE 60; GLUCOSE 109 mg/dL (70-100); POTASSIUM 3.4 mEq/L (3.5-5.2); SODIUM 136 mEq/L (134-144); TOTAL PROTEIN 4.2 g/dL (6.3-8.2)
[2017-08-13 06:23] LABS: RED CELL DISTRIBUTION WIDTH 21.1 % (11.5-15.2)
[2017-08-13 07:07] LABS: MICROCYTES 1+; PLATELET ESTIMATE DECREASED (ADEQ)
[2017-08-13 07:50] LABS: CORTISOL-AM 82.6 ug/dL (4.5-22.7)
--- NOTE | 2017-08-13 08:26 | HOSPPROG ---
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 Colón and is end-stage without suspected improvement #Coag neg positive blood culture: suspect contaminant, procalcitonin negative. Stop Vanc #Pneumonitis: suspect aspiration with dementia. Negative procalcitonin. Stop Zosyn #Hypotension: suspect due to dehydration. Suspect Coag neg is contaminant. #Pressure injuries: sacrum, left hip. Present at admission #Hypokalemia: repleting #Goals: I spoke with son today and expressed poor prognosis given underlying advanced dementia. Ultimate goal would be to take her home. Hospice to evaluate today Critical care time spent : 35 min reviewing records, lab data and discussing goals with son Subjective: hypotensive this morning Objective: Vital Signs Temp Pulse Resp BP Pulse Ox 37 C 79 12 91/43 L 95 08/13/17 06:00 08/13/17 06:00 08/13/17 06:00 08/13/17 06:00 08/13/17 06:00 Laboratory Results 08/13/17 05:50 08/13/17 05:50 08/12/17 08/13/17 08/14/17 05:59 05:59 05:59 Intake Total 3540 Output Total 1350 Balance 2190 PT 13.3 SEC (12.0-15.0) 08/12/17 13:50 INR 1.02 (0.83-1.16) 08/12/17 13:50 - Physical Exam Constitutional: chronically ill appearing, cachectic Eyes: PERRL Ears, Nose, Mouth, Throat: moist mucous membranes, other (NG tube in place) Cardiovascular: regular rate and rhythym Respiratory: rhonchi Gastrointestinal: normoactive bowel sounds, soft, non-tender abdomen Musculoskeletal: generalized weakness Psychiatric: encephalopathic ICD10 Worksheet Patient Problems: Problems Problem Status Onset Bradycardia Acute Hypoglycemia Acute Hypothermia Acute Anemia due to blood loss Active Clostridium difficile colitis Active Colitis Active Dysphagia Active Fever Active Hypoalbuminemia Active Parkinson's disease Active Failure to thrive in adult Acute Hyponatremia Acute UTI (urinary tract infection) Acute
--- NOTE | 2017-08-13 08:33 | GCON ---
[f rep st] CONSULTATION NEUROLOGIC CONSULTATION REFERRING PHYSICIAN: Preston Crockett MD HISTORY: The patient is an 86-year-old woman with advanced Parkinson disease diagnosed about 20 year s ago and previously followed in our clinic by Dr. Beasley. She is here in the hospital currently be cause of progressive decline to the point of unresponsiveness. The history is reviewed without the b enefit of a commercial credit specialist in the short term by discussion with the nurse as well as the patient's grands on. I have also reviewed the history and physical from Dr. Crockett. According to the best informati on we have, she has become less responsive and at baseline does have a rather profound dementia and m ay not always be able to communicate effectively. She typically knows who family members are from wh at they are telling me and needs assistance with eating. She has had worsening swallowing. It has b een difficult to be sure if she is getting her actual medications and they have sometimes seen this i n her mouth. The patient is unable to communicate in any effective means currently. There has not b een a specific acute illness that they are aware of. She has not been opening her eyes and this degr ee of decreased responsiveness led to family bringing her to the hospital. She has been evaluated wi th a head CT showing nothing specific. She was hypoglycemic with hypotension, bradycardia and hypoth ermia, but workup for specific causes such as myxedema coma have been negative and Endocrine did not think that was likely the cause. She has been admitted to the ICU for supportive care, but there is not a plan for intubation or resus citation if she were to have cardiopulmonary arrest. PAST MEDICAL HISTORY: Notable for the hypertension, hypothyroidism, dementia and Parkinson disease. She has more recently been followed in the clinic by Dr. James Emery. He has been seeing her since at least 2013. In reviewing his notes from August of 2014, he summarized that she was seen previo usly by Dr. Beasley and was having occasional hallucinations. She has been hospitalized in the past for confusion. She had seen Dr. Sutton as well. She was felt at end-stage Parkinson disease, even b ack at that point, and palliative care was completed, but the patient has declined palliative care re commendation and wanted full care. She was being treated with a combination of carbidopa/levodopa, e ntacapone, Mirapex, risperidone, and Namenda. Her son and granddaughter saw Dr. Emery in August. She had severe cognitive limitations and dementia. Virtually all activities at that time were do cumented to be dependent upon others. They were having to feed her apparently. There have been isi mmendations for referral to hospice, which the family had declined back then. She apparently becomes very rigid when she misses her doses of medication. In 2015, Dr. Emery again saw the patient with re commendation to referral for Parkinson disease center or discussing hospice or long term placement . There was not a report of major changes. At that time, family did not want to consider any of tho se options or declined. In April of 2017, she was again seen. She had severe dementia with her par kinsonism and still the family was not noticing much significant change. Supportive care was being c ontinued and medications as tolerated. She was not even able to perform mini-mental status testing a t that point because of the severe nature of her dementia. Prescribed medications with a combination of Mirapex 0.75 mg daily, Namenda XR 7 mg daily, risperidone 0.5 mg at night, Stalevo, and scopolami ne and zolpidem. She has not been seen in the clinic since April, but was apparently scheduled for a followup tomorrow. PAST MEDICAL HISTORY: As outlined above. FAMILY HISTORY: Noncontributory. She is living with her son. PHYSICAL EXAMINATION: On my current examination, she is unresponsive to voice. She has no spontaneo us eye opening and no eye opening to pain. If I hold her eyes open, she does not track toward me and does not maintain eye opening even when I pull them open. The nurse tells me that when she was bein g vigorously moved or adjusted in bed, there were times when she might make some verbalizations, but no words and no evident meaningful interaction. She might briefly open her eyes but not express any wishes. Pupils are about 2 mm and sluggish, but I see reactivity. The extraocular movements are limited, but partial oculocephalic reflexes are present. She is not grimacing to pain in the brow or in the extr emities. There is a pathologic withdrawal in the lower extremities it appears with bilateral upgoing toes. She has generalized rigidity. Actual strength is hard to assess in her state, but there is n ot any active resistance to my movements. Reflexes are hypoactive in the upper extremities and knees . IMPRESSION: The patient has advanced Parkinson disease with advanced dementia and has had this degre e of debilitation for many years, which is only getting worse and entirely consistent with the course of this disease. However, she has maintained a relative stable state under the good care of her fam slime, and they have repeatedly declined any other approaches such as palliative care or hospice care a nd have simply wanted to maintain her quality of life as much as possible at home and on medicines as tolerated. She is appearing acutely ill and may have a sepsis syndrome, but nothing has been specif ically identified. A brainstem stroke cannot be excluded, although there are not nonspecific signs o n the exam to allow me to make a precise diagnosis on clinical grounds alone. This degree of unrespo nsiveness would only come from severe bihemispheric dysfunction or brainstem dysfunction and the unde rlying source for this, whether ischemic or metabolic or generalized nutritional failure is hard to s ay yet. I think supportive care is appropriate. She has a no-sed-poundxqinfw status. Family would benefit from further palliative care consultation. Maintaining the patient's dignity and quality of life is the goal. None of this is truly reversible, but if their wishes are to keep her at home and allow her to at home versus another setting, that is something we can help facilitate as much as possible. Until we have a commercial credit specialist available, it is not clear to me what the patient's family can and cannot successfully accomplish and want to do at this point, but it appears they are very support tasha of her and simply want good quality of life until the end. I will speak more with them later whe n the commercial credit specialist is available. Maintaining support through the NG tube is appropriate until such maxine e that they would rather decline. She appears so malnourished and debilitated that I again would be surprised if she were able to survive very long in her current status. Total unit time thus far of 70 minutes. /[id number]/MODL
[2017-08-13] MEDS ORDERED: PRAMIPEXOLE DI HCL 0.75 MG TUBE SCH (09:00)
[2017-08-13] MEDS ORDERED: SCOPOLAMINE HYDROBROMIDE 1 MG/3 DAYS PATCH TD SCH (09:00)
[2017-08-13] MEDS ORDERED: NS 500 ML IV ONE ×2 (09:30→13:00)
--- NOTE | 2017-08-13 09:40 | ASMTCMCOM ---
CM Note CM Note Notes: 86 year old female admitted for hypoglycemia, hypothermia, dysphasia, FTT, UTI, HTN. She has a hx of Parkinson's, dementia. OT reports that son is her primary caregiver. He lifts patient w/o the aide of a lift. They live in a trailer and need a ramp. If patient returns home they will need HC or Hospice services. May need an order for Palliative Consult? Date Signed: 08/13/2017 09:39 AM Electronically Signed By:Briseida Burdick LCSW
[2017-08-13] MEDS: CARBIDOPA/LEVODOPA 25 MG/100 MG TAB TUBE SCH ×3 (09:47→21:39)
[2017-08-13] MEDS: TRAVOPROST Z 0.004% 2.5 ML OPHT.BTL EACHEYE SCH (09:48)
[2017-08-13] MEDS: ENOXAPARIN 30 MG/0.3 ML SYR SC SCH (09:48)
[2017-08-13] MEDS: ENTACAPONE 200 MG TAB TUBE SCH ×3 (09:48→21:38)
[2017-08-13] MEDS: PRAMIPEXOLE 0.25 MG TAB TUBE SCH ×3 (09:48→21:39)
--- NOTE | 2017-08-13 11:25 | ECHO ---
[email or web address] [address] Main: [phone] Fax: Transthoracic Echocardiogram Name: GALEN JOHNSON MR#: [id number] Study Date: 08/13/2017 Study Time: 10:21 AM Date of : 1930 Age: 86 year(s) Height: 152.4 cm (60 in.) Weight: 30.84 kg (68 lb.) BSA: 1.18 m2 Gender: Female Examination: Echo Indication: Hypotension Image Quality: Contrast: Requested by: Preston Crockett BP: 97 mmHg/49 mmHg Heart Rate: Rhythm: Normal sinus rhythm Indication: Hypotension Procedure Staff Dry Cleaning Counter Clerk: Jer Adam Reading Physician: Tree Tai Requesting Provider: Conclusions: No pericardial effusion. Normal left ventricular systolic function. Diastolic dysfunction with left atrial enlargement. Mitral annular calicification with mild regurgitation. Aortic cusp calcification with mild to moderate regusrgitation. RVSP is normal. No etiology for hypotension suggested by this study. Measurements: Chambers Valvular Assessment AV/MV Valvular Assessment TV/PV Normal Normal Normal Name Value Range Name Value Range Name Value Range Ao Lilia (2D): 2.0 cm (1.4 cm-2.6 AV Vmax: 1.96 m/s (1 m/s-1.7 TR Vmax: 2.74 mm/s ( - ) cm) m/s) TR PGmax: 30 mmHg ( - ) IVSd (2D): 0.7 cm (0.6 cm-1.1 AV maxP mmHg ( - ) syst. PAP: 35 mmHg ( - ) cm) AV meanP mmHg ( - ) LVDd (2D): 3.6 cm (3.9 cm-5.3 LVOT Vmax: 1.05 m/s (0.7 m/s-1.1 cm) m/s) LVDs (2D): 2.0 cm (2.1 cm-4 MARYLU (Vmax): 1.2 cm2 ( - ) cm) MARYLU (VTI): 1.3 cm ( - ) LVPWd (2D): 1.0 cm ( - ) AR (PHT): 604 ms ( - ) LVOTd 1.7 cm 1.7 cm mm MV E Vmax: 0.95 m/s ( - ) LVEF (2D): 76 (>=54 %) MV A Vmax: 1.52 m/s ( - ) MV E/A: 0.62 ( - ) MV meanP mmHg ( - ) MV PHT: 0.079 s ( - ) MVA (Vmax): 1.8 m/s ( - ) MVA (PHT): 2.8 s ( - ) Continued Measurements: Chambers Valvular Assessment AV/MV Valvular Assessment TV/PV Patient: GALEN JOHNSON Study Date: 08/13/2017 Page 1 of 2 10:21 AM Name Value Name Value Name Value LADs Lon.8 cm MV DecTime: 194 m/s CVP (est.): 5 mmHg LA Area: 20.9 cm2 MV VTI: 31.40 cm AR Vmax: 3.57 cm/s AR ERO: 0.170 cm2 AR PISA radius: 0.5 cm AR Reg. Volume: 22.0 ml AR Reg. Fraction: 39 % AR VTI: 131.0 cm Findings: Left Ventricle: Normal size left ventricle. No LV hypertrophy. Normal global systolic LV function. EF is 76 %. No regional wall motion abnormality. Diastolic dysfunction is present. . Right Ventricle: Normal size right ventricle. Normal RV function. Left Atrium: The left atrium is moderately dilated. Right Atrium: The right atrium is normal in size. Mitral Valve: Moderate mitral valve leaflet calcification is present. Mild mitral valve regurgitation is present. No mitral stenosis is present. Aortic Valve: Moderate aortic cusp calcification is present. Mild to moderate aortic valve regurgitation. No aortic valve stenosis is present. Tricuspid Valve: Mild tricuspid regurgitation is present. The pulmonary artery pressure is normal. Pulmonic Valve: Pulmonary valve not well visualized. Aorta: The aorta is normal. Pericardium: No pericardial effusion. Exam Comments: Only one echo window available. Patient is very petite, pectus carinatum.. (No Signature Object) Patient: GALEN JOHNSON Study Date: 08/13/2017 Page 2 of 2 10:21 AM [id number]
--- NOTE | 2017-08-13 11:44 | PDMN ---
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
--- NOTE | 2017-08-13 12:22 | WOCRNPDOC ---
WOCRN Advanced Assessment Note - Skin Integrity Problem, Advanced Assess Sacrum Pressure Injury Dressing Type: Allevyn Life Dressing Description: Clean/Dry, Intact Exudate Amount: Scant Exudate Color: Reddish/Yellow Exudate Characteristic(s): Serosanguinous Integumentary Issue Intervention: Dressing Changed Una Wound Tissue: Scarred Una Wound Swelling: None Wound Bed Color: [place] Wound Bed Constitution: Smooth Tissue Wound Edges: Attached Site Odor: None Site Measurement - Head-to-Toe Length X Width X Depth (cm): 2.7x3x0.2 Pressure Injury Stage: Stage 3 Pressure Injury Present on Admit: Yes Skin Integrity Problem Comment: Patient rolled to right side with help from JAMESON Soler. Allevyn life removed and wound bed cleaned with NS and gauze. Wound bed bright pink with well defined edges. Una wound tissue with hypopigmentation and significant scarring, indicating that at one point this wound was much larger. Reports from prior hospitalizations indicate that this wound was a stage 3 pressure injury. Wound care will round again later this week. Left Hip Pressure Injury Dressing Type: Allevyn Life Dressing Description: Clean/Dry, Intact Exudate Amount: Scant Exudate Color: Reddish/Yellow Exudate Characteristic(s): Serosanguinous Integumentary Issue Intervention: Visualized Under Dressing Una Wound Tissue: Scarred Wound Bed Color: Yellow Wound Bed Constitution: Adhered Slough Wound Edges: Attached, Well Defined Site Odor: None Site Measurement - Head-to-Toe Length X Width X Depth (cm): 0.6x0.4xslough Pressure Injury Stage: Unstageable Pressure Injury Present on Admit: Yes Skin Integrity Problem Comment: Small full thickness opening present on patient' s left hip. Wound bed cleaned with NS and gauze and attempted to mechanically debride with gauze. Was able to remove some slough from wound edges but central portion of wound with adhered slough. Will order for honey in attempt to gently debride. Una wound skin with hypopigmentation and significant scar tissue indicating that at one point this wound was much larger. Wound care will follow up later this week.
--- NOTE | 2017-08-13 16:34 | ASMTCMCOM ---
CM Note CM Note Notes: Hospitalist spoke to patient's family and they would like to talk with a Hospice equal opportunity representative. Called numerous Hospice agencies to locate an agency that had Singaporean speaking staff. Couldn't find any with Singaporean speaking RN's But a few had Singaporean speaking aides. Made a referral to [facility] and they will send out a equal opportunity representative at 4:00. Assisted in Medical Proxy paperwork. Son Bobby to be Medical Proxy [phone]. If family decides on going with Hospice, this will take place Saturday. Date Signed: 08/13/2017 04:34 PM Electronically Signed By:Briseida Burdick LCSW
[2017-08-13] MEDS ORDERED: NS 1,000 ML IV SCH (18:15)
--- NOTE | 2017-08-14 01:12 | GCON ---
[f rep st] CONSULTATION CRITICAL CARE CONSULTATION HISTORY OF PRESENT ILLNESS: This patient is an 86-year-old female DNR who is Bulgarian-speaking only a nd was unable to speak to me during my evaluation due to encephalopathy, and her family was not prese nt at that time so most of my history comes from her chart. She has end-stage Parkinson disease with dementia but apparently, had worsening mental status and ongoing issues of poor swallowing. Because of difficulty with her mental status, she was brought to the emergency department, where she was marcia te obtunded and found to be hypoglycemic down to 35 with hypothermia. The notes also suggest she has had difficulty keeping food down and has been closing her eyes more often and sleeping more. The raymundo mead reports evidence of pills in her teeth after she is supposed to have taken them. She was treate d initially with a D5 drip; antibiotics were started for concerns about sepsis, though her procalcito alexia was quite low; and she remains fairly obtunded now. REVIEW OF SYSTEMS: Otherwise negative. PAST MEDICAL HISTORY: Includes: 1. Dementia. 2. Parkinson's. 3. Hypertension. 4. Hypothyroidism. ALLERGIES: None. FAMILY HISTORY: Noncontributory. SOCIAL HISTORY: She is a nonsmoker. No alcohol or IV drug use. MEDICATIONS: Include Sinemet, D5 normal saline, Lovenox, Solu-Cortef 100 mg IV q.8 hours, Synthroid, Zofran, Mirapex, scopolamine, Travatan. PHYSICAL EXAMINATION: VITAL SIGNS: She is afebrile. Her low temperature was 33.5 yesterday and is currently 36.4. Blood pressure of 97/50, heart rate 75, respirations 20, oxygen saturation 95% on ro om air. GENERAL: She is a very frail, thin, ill-appearing woman who is curled up in the bedside lavelle ir, with obvious contractures. CHEST: She has a very large pectus excavatum, but her breath sounds appear to be normal. HEENT: Her pupils are difficult to visualize but appear to be equally round an d reactive to light. Mucous membranes are dry. NECK: Supple. HEART: Regular rate and rhythm. AB DOMEN: Soft, nontender. EXTREMITIES: Show no edema. There are apparently a number of wounds on he r skin. LABORATORY DATA AND X-RAY: Objective data includes a white count of 6.9, hematocrit 24.7, platelets of 71. Sodium was 136, potassium 3.4, chloride 112, bicarb 16, BUN 27, creatinine 0.9, glucose now 1 09. LFTs were normal transaminases with an albumin of only 2.1. INR of 1.02. TSH was 1.8, free T4 2.19. Baseline cortisol 22.9. For some reason, it was re-checked today while on hydrocortisone at 8 2.6. Urinalysis showed trace ketones; otherwise negative. Blood cultures show 1 bottle with coag-ne gative staph. The chest x-ray is difficult to see but probably has at least right lower lobe, if not bilateral lowe r lobe, atelectasis versus pneumonia. Feeding tube is in the midchest, though it is reported as in t he stomach. ASSESSMENT AND PLAN: 1. Abnormal mental status in a patient who has end-stage Parkinson disease who has been followed mere may by Neurology. It would take very little for her to have an abnormal mental status and encephalo jeff. At this point, I think this is likely toxic metabolic and has a good chance to improve, assum ing the underlying problems are identified infectious. The issues relating at the moment are the hyp othermia and hypoglycemia with elements of poor nutrition. 2. Hypoglycemia. I am suspecting that this is due to poor p.o. intake with poor production. It is relatively stable now on a D5 drip. I think sepsis is unlikely despite the blood culture because of her normal procalcitonin and normal white count without an obvious source. Now it is possible she queen s pneumonia, but I think this is unlikely. 3. Bacteremia. With a coag-negative staphylococcus, this is probably a contaminant, but we may need Infectious Disease. I would consider holding her antibiotics and monitoring her progress. At the [facility], she is getting high-dose steroids which I would discontinue since she is not hypotensive and i n septic shock. 4. Anemia. This is probably anemia of chronic disease. There is no evidence of bleeding. 5. Blood pressure. It is a bit borderline. I would consider a fluid challenge at this point, targe ting a systolic pressure of 90. We may use a NICOM to better assess that there is no evidence of car diac disease on her current echocardiogram. 6. Diffuse skin wounds. She has been seen by Wound Care. 7. Disposition. Overall, I think this patient with end-stage Parkinson disease should give strong c onsideration to hospice care and that further aggressive tactics should be foregone, but Dr. Muhammad i s going to speak to the family about that later today. A total of about 45 minutes of critical care time was required for this patient. /[id number]/MODL
[2017-08-14] MEDS: LEVOTHYROXINE 75 MCG TAB TUBE SCH (06:27)
[2017-08-14] MEDS: HYDROCORTISONE 100 MG/2 ML VIAL IVP SCH (06:27)
[2017-08-14 06:33] VITALS: BP 121/54; PULSE 64; RESP 21; TEMP 98.2; O2SAT 98
--- NOTE | 2017-08-14 09:32 | PDIAF ---
- Diagnosis Diagnosis: hypotension, dementia, aspiration Code Status: Do Not Resuscitate - Medication Management Discharge Medications: Medications to Continue on Transfer Scopolamine Hydrobromide [Transderm-Scop] 1.5 mg TD Q72H 10/24/11 [Last Taken ] Travoprost [Travatan Z] 1 drop EACHEYE DAILY 02/06/17 [Last Taken 08/12/17] Travoprost Z 0.004% [Travatan Z 0.004% (*)] 1 drops EACHEYE DAILY opht.btl [Last Taken Unknown] Discharge Medications: Refer to the Discharge Home Medication list for PRN reason. - Orders Isolation Type: CDIFF Isolation Diet Recommendation: no restrictions on diet, other (may use swabs for liquids for comfort) - Follow Up Care Current Providers and Referrals: [facility] [Other] - As per Instructions
[2017-08-14] MEDS: CARBIDOPA/LEVODOPA 25 MG/100 MG TAB TUBE SCH (09:43)
[2017-08-14] MEDS: ENTACAPONE 200 MG TAB TUBE SCH (09:43)
[2017-08-14] MEDS: PRAMIPEXOLE 0.25 MG TAB TUBE SCH (09:44)
[2017-08-14] MEDS: ENOXAPARIN 30 MG/0.3 ML SYR SC SCH (09:50)
[2017-08-14] MEDS: TRAVOPROST Z 0.004% 2.5 ML OPHT.BTL EACHEYE SCH (09:50)
--- NOTE | 2017-08-14 22:42 | GDS ---
[f rep st] DISCHARGE SUMMARY DISCHARGE DIAGNOSES: 1. Aspiration. 2. Advanced Parkinson dementia. 3. Dysphagia. 4. Hypertension. 5. Hypothyroidism. 6. Hypoglycemia. 7. Acute on chronic encephalopathy. 8. Coag-negative bacteremia, likely contaminant. 9. Anemia. 10. Hypotension. 11. Sacral and hip skin wounds present on admission. HISTORY OF PRESENT ILLNESS: An 86-year-old, Armenian-speaking female with advanced Parkinson dementia , hypertension, hypothyroidism, presenting with worsening fatigue and confusion. She has had more tr ouble swallowing recently due to her Parkinson's. She is choking on pills. She has become more conf used and more fatigued. Appears to be sleeping more throughout the day. In the ER she was hypotherm ic to 33.3, and hypotensive with blood pressure 79/39. She was admitted to the ICU for further evalu ation. HOSPITAL COURSE BY PROBLEM: 1. Acute on chronic encephalopathy: Suspect likely aspiration with dementia and difficulty swallowi ng. A procalcitonin was negative. Blood culture was positive for coag-negative staph, but suspect t his is contamination, given it was 1 out of 4 bottles. She was initially treated with vanc and Zosyn , but this was discontinued given low suspicion for infection. 2. Dysphagia: Secondary to dementia. She has been choking on pills. I advised family to avoid giv ing solids. She may have taste and sips for comfort. 3. Hypotension: Suspect dehydration with minimal p.o. intake at home. This improved with IV fluids . Did not require pressors. 4. Hypokalemia: Secondary to decreased p.o. intake. This was repleted. 5. Normocytic anemia and no evidence of bleeding. GOALS: I had an extensive conversation with the patient's son, who expressed that he would like his mother to be taken home. They met and have accepted care with [facility]. DISPOSITION: Patient is stable for discharge home with family and hospice. MEDICATIONS: Discontinue on any orals given dysphagia and high risk of choking. PHYSICAL EXAM: VITAL SIGNS: Today, temperature 36.8, blood pressure 121/54, heart rate in the 60s, respiration 20, 98% on room air. GENERAL: Cachectic, temporal muscle wasting. HEENT: Dry mucous m embranes. PERRLA. CV: Regular rate and rhythm. No murmurs, gallops, rubs. LUNGS: Clear to auscu ltation. ABDOMEN: No grimace with palpitation. : Castro in place. NEURO: Not answering questio ns, but will open eyes. /[id number]/MODL
== END 2017-08-14 10:44 | disposition hospice, home (50) | DRG 922 ==
LOC: F2N 16:22
PROVIDERS: ADMIT Student in an Organized Health Care Education/Training Program; ATTEND Student in an Organized Health Care Education/Training Program
DX: T68.XXXA Hypothermia, initial encounter (principal); G93.49 Other encephalopathy; L89.153 Pressure ulcer of sacral region, stage 3; F02.81 Dementia in other diseases classified elsewhere, unspecified severity, with behavioral disturbance; E16.2 Hypoglycemia, unspecified; L89.220 Pressure ulcer of left hip, unstageable; G20 Parkinson's disease; I10 Essential (primary) hypertension; R13.10 Dysphagia, unspecified; E03.9 Hypothyroidism, unspecified; D64.9 Anemia, unspecified; E86.0 Dehydration; E87.6 Hypokalemia; Z74.01 Bed confinement status; Z66 Do not resuscitate
CPT/HCPCS: 82947-QW; 96374; 97163-GP; 97167-GO; 97530-GO; 97530-GP; G8987-GO-CN; G8988-GO-CM; G8989-GO-CN; J1650; J2543; J3370